=== PATIENT | male | born 1995 | race Caucasian/White ===

== ENCOUNTER 2016-05-10 01:02 | Emergency (ER) | payer BC ==
[2016-05-10 01:09] VITALS: RESP 16
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
[2016-05-10] MEDS ORDERED: NS 1,000 ML IV ONE (01:21)
[2016-05-10] MEDS ORDERED: ONDANSETRON 4 MG/2 ML VIAL IVP ONE ×2 (01:21→02:02)
[2016-05-10] MEDS ORDERED: PANTOPRAZOLE SODIUM 80 MG in NS 100 ML IV ONE (01:21)
[2016-05-10] MEDS ORDERED: PANTOPRAZOLE SODIUM 40 MG VIAL IVP ONE (01:29)
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
[2016-05-10 01:30] LABS: % IMMATURE GRANULYOCYTES 0.3 % (0.0-1.1); ABSOLUTE IMMATURE GRANULOCYTES 0.03 10^3/uL (0.00-0.10); ADD DIFF? NO; ADD MORPH? NO; ADD SCAN? NO; ATYPICAL LYMPHOCYTE FLAG 0 (0-99); FRAGMENT RBC FLAG 0 (0-99); HEMATOCRIT 43.3 % (40.0-51.0); HEMOGLOBIN 15.5 g/dL (13.7-17.5); LEFT SHIFT FLG 0 (0-99); LIPEMIA HEMOLYSIS FLAG 90 (0-99); MEAN CELL HEMOGLOBIN 29.8 pg (27.9-34.1); MEAN CELL HEMOGLOBIN CONCENTR. 35.8 g/dL (32.4-36.7); MEAN CELL VOLUME 83.3 fL (81.5-99.8); MEAN PLATELET VOLUME 10.9 fL (8.7-11.7); PLATELET CLUMPS FLAG 0 (0-99); PLATELET COUNT 201 10^3/uL (150-400); RED CELL DISTRIBUTION WIDTH 12.8 % (11.5-15.2)
[2016-05-10 01:38] LABS: INR 1.04 (0.83-1.16); PROTIME(PATIENT) 13.5 SEC (12.0-15.0)
[2016-05-10 01:39] LABS: APTT 28.6 SEC (23.0-38.0)
[2016-05-10 01:48] LABS: ALANINE AMINOTRANSFERASE 71 IU/L (21-72); ALBUMIN 4.2 g/dL (3.5-5.0); ALKALINE PHOSPHATASE 55 IU/L (38-126); ANION GAP 12 mEq/L (8-16); ASPARTATE AMINOTRANSFERASE 32 IU/L (17-59); BILIRUBIN,TOTAL 2.2 mg/dL (0.1-1.4); BILIRUBIN-CONJUGATED 0.3 mg/dL (0.0-0.5); BILIRUBIN-UNCONJUGATED 1.9 mg/dL (0.0-1.1); CALCIUM 9.8 mg/dL (8.5-10.4); CARBON DIOXIDE 24 mEq/l (22-31); CHLORIDE 104 mEq/L (97-110); CREATININE 0.8 mg/dL (0.7-1.3); GLOMERULAR FILTRATION RATE > 60; GLUCOSE 95 mg/dL (70-100); POTASSIUM 3.9 mEq/L (3.5-5.2); SODIUM 140 mEq/L (134-144); TOTAL PROTEIN 7.4 g/dL (6.3-8.2)
[2016-05-10 07:38] VITALS: BP 127/71; PULSE 72; O2SAT 97
[2016-05-10 07:39] VITALS: TEMP 98.1
--- NOTE | 2016-05-10 13:43 | US ---
Gallbladder Sonogram History: Right upper quadrant pain, abdominal pain, possible cholelithiasis. Comparison: None. Findings: There are no gallstones, gallbladder wall thickening or pericholecystic fluid. The liver, right kidney, pancreas, and common duct are normal. There is no ascites. The visualized aorta and IVC are normal. Impression: Normal study. Results called to Sarath Thurman PA-C at 2:37 a.m. Final results are concordant with the initial interpretation. [id number] POS 99 MTDD
== END 2016-05-10 04:22 | disposition home or self-care (01) ==
DX: R10.84 Generalized abdominal pain (principal); R11.2 Nausea with vomiting, unspecified
CPT/HCPCS: 96374; J2405

== ENCOUNTER → 2016-09-09 | Outpatient (CLI) | payer BC | LOC: BMCIMAGING 10:07 | PROVIDERS: ATTEND Family Medicine | DX: N50.812 Left testicular pain (principal) ==